=== PATIENT | male | born 1970 | race Caucasian/White ===

== ENCOUNTER 2018-09-08 09:36 | Emergency (ER) | payer BC, MEDICAID ==
[~2018-09-08] VITALS: Ht 175.3 cm; Wt 87.2 kg
--- NOTE | 2018-09-08 09:50 | NUR ---
assumed care of pt. pt here with multiple complaints. pt states that his primary c/o is high B/P, but that he has been having intermittent chest pain, and SOB for the last few days to weeks. pt is in no respiratory distress at this time. reports that the pain is minimal at this time. no loss or change of vision. no dizziness. no facial droop noted. PERDOMO. pt reports that he has been drinking 3-4 energy drinks per day but that he has only had 1 today. pt also reports that he has not been very compliant with his clonidine, and that he has been out of it for a few days. reports that he is seen at the [facility] which is who sent him here this AM and that he has had a new Rx called in, he has not yet picked up. EKG has been to bedside, at bedside for ele
[2018-09-08] MEDS ORDERED: CLON0.2T PO (10:02)
--- NOTE | 2018-09-08 10:18 | NUR ---
CXR has been to bedside
--- NOTE | 2018-09-08 10:44 | NUR ---
pt has been medicated per order. talking on cell phone. lab has been to bedside
--- NOTE | 2018-09-08 10:50 | NUR ---
report to bryn COUGHLIN. PT sitting up on [place] on cell phone. updated on POC
--- NOTE | 2018-09-08 10:54 | NUR ---
bedside report from Darya COUGHLIN, pt resting in [facility] with call light within reach. pt just given clonadine, awaiting lab and rad results
[2018-09-08 10:56] LABS: BASOPHILS # (AUTO) 0.06 x10^3/uL (0-0.1); BASOPHILS % (AUTO) 1 % (0-1); EOSINOPHILS # (AUTO) 0.04 x10^3/uL (0-0.4); EOSINOPHILS % (AUTO) 1 % (1-7); LYMPHOCYTES # (AUTO) 1.73 x10^3/uL (1-3.4); LYMPHOCYTES % (AUTO) 23 % (22-44); MD NO; MEAN CORPUSCULAR HEMOGLOBIN 31.8 pg (27.5-34.5); MEAN CORPUSCULAR HGB CONC 33.6 g/dL (33.2-36.2); MEAN CORPUSCULAR VOLUME 94.4 fL (81-97); MEAN PLATELET VOLUME 8.7 fL (7.4-10.4); MONOCYTES # (AUTO) 0.43 x10^3/uL (0.2-0.8); MONOCYTES % (AUTO) 6 % (2-9); NEUTROPHILS # (AUTO) 5.24 x10^3/uL (1.8-6.8); NEUTROPHILS % (AUTO) 70 % (42-75); PLATELET COUNT 268 x10^3/uL (130-400); RED BLOOD COUNT 4.94 x10^6/uL (4.38-5.82); RED CELL DISTRIBUTION WIDTH 12.6 % (9.4-14.8)
[2018-09-08 11:02] LABS: ALBUMIN 4.7 g/dL (3.4-5.0); ANION GAP 8 mmol/L (5-15); CALCIUM 9.1 mg/dL (8.5-10.1); CHLORIDE 107 mmol/L (98-107); CREATININE 1.15 mg/dL (0.7-1.3)
[2018-09-08 11:06] LABS: TROPONIN I < 0.015 ng/mL (0.000-0.045)
[2018-09-08] MEDS ORDERED: POTASSIUM CHLORIDE 20 MEQ TAB.ER.PRT ONE (11:18)
[2018-09-08] MEDS ORDERED: POTASSIUM CHLORIDE 20 MEQ TAB.ER.PRT PO ONE (11:30)
[2018-09-08 11:37] VITALS: BP 163/105
== END 2018-09-08 11:40 | disposition home or self-care (01) ==
LOC: ED 10:17
DX: I10 Essential (primary) hypertension (principal); E87.6 Hypokalemia; M25.512 Pain in left shoulder
CPT/HCPCS: 36415; 71045; 80048; 82040; 84484; 85025; 93005; 99284

== ENCOUNTER 2019-01-23 04:23 | Emergency (ER) | payer MEDICAID ==
[~2019-01-23] VITALS: Ht 175.3 cm; Wt 89.3 kg
[~2019-01-23 04:23] MED LIST: CLON0.2T PO
[2019-01-23] MEDS ORDERED: OXYcodone/APAP 5/325MG TABLET ONE (04:58)
[2019-01-23] MEDS ORDERED: ASPIRIN 81 MG TABLET CHEW ONE ×2 (04:58→05:03)
[2019-01-23] MEDS ORDERED: ASPIRIN 81 MG TABLET CHEW PO ONE (05:00)
[2019-01-23] MEDS ORDERED: OXYcodone/APAP 5/325MG TABLET PO ONE (05:00)
[2019-01-23 06:03] LABS: BASOPHILS # (AUTO) 0.05 x10^3/uL (0-0.1); BASOPHILS % (AUTO) 1 % (0-1); EOSINOPHILS # (AUTO) 0.15 x10^3/uL (0-0.4); EOSINOPHILS % (AUTO) 2 % (1-7); LYMPHOCYTES # (AUTO) 1.49 x10^3/uL (1-3.4); LYMPHOCYTES % (AUTO) 17 % (22-44); MD NO; MEAN CORPUSCULAR HEMOGLOBIN 32.5 pg (27.5-34.5); MEAN CORPUSCULAR HGB CONC 33.9 g/dL (33.2-36.2); MEAN CORPUSCULAR VOLUME 95.9 fL (81-97); MEAN PLATELET VOLUME 7.9 fL (7.4-10.4); MONOCYTES # (AUTO) 0.45 x10^3/uL (0.2-0.8); MONOCYTES % (AUTO) 5 % (2-9); NEUTROPHILS # (AUTO) 6.84 x10^3/uL (1.8-6.8); NEUTROPHILS % (AUTO) 76 % (42-75); PLATELET COUNT 251 x10^3/uL (130-400); RED BLOOD COUNT 4.46 x10^6/uL (4.38-5.82); RED CELL DISTRIBUTION WIDTH 12.9 % (9.4-14.8)
[2019-01-23 06:15] LABS: ALBUMIN 4.4 g/dL (3.4-5.0); ANION GAP 7 mmol/L (5-15); CALCIUM 8.8 mg/dL (8.5-10.1); CHLORIDE 107 mmol/L (98-107); CREATININE 1.62 mg/dL (0.7-1.3)
[2019-01-23 06:19] LABS: TROPONIN I < 0.015 ng/mL (0.000-0.045)
[2019-01-23 06:46] VITALS: BP 140/100
== END 2019-01-23 06:49 | disposition home or self-care (01) ==
LOC: ED 05:48
DX: R07.89 Other chest pain (principal); I10 Essential (primary) hypertension; M54.30 Sciatica, unspecified side; M54.9 Dorsalgia, unspecified
CPT/HCPCS: 36415; 71046; 71120; 80048; 82040; 83880; 84484; 85025; 93005; 99284

== ENCOUNTER 2019-12-06 22:39 | Emergency (ER) | payer MEDICAID ==
[~2019-12-06] VITALS: Ht 175.3 cm; Wt 68.9 kg
[2019-12-06 22:42] VITALS: BP 134/101
[2019-12-06] MEDS ORDERED: DIAZEPAM 5 MG TABLET ONE (23:44)
[2019-12-06] MEDS ORDERED: KETOROLAC 30 MG/1 ML ONE (23:44)
[2019-12-07] MEDS ORDERED: DIAZEPAM 5 MG TABLET PO ONE
[2019-12-07] MEDS ORDERED: KETOROLAC 30 MG/1 ML IM ONE
== END 2019-12-07 00:57 | disposition home or self-care (01) ==
LOC: ED 23:44
DX: S16.1XXA Strain of muscle, fascia and tendon at neck level, initial encounter (principal); M54.5 Low back pain; M54.6 Pain in thoracic spine; I10 Essential (primary) hypertension; E87.6 Hypokalemia; X58.XXXA Exposure to other specified factors, initial encounter; Y93.89 Activity, other specified; Y92.89 Other specified places as the place of occurrence of the external cause; Y99.8 Other external cause status
CPT/HCPCS: 96372; 99283; J1885